=== PATIENT | female | born 1955 | race African-American/Black ===

== ENCOUNTER 2024-10-04 10:40 | Outpatient (CLI) | payer MEDICARE ==
[2024-10-04 11:32] LABS: Hematocrit 36.3 % (34.9-44.5); Hemoglobin 12.5 g/dL (12.0-15.5); Mean Corpuscular Hemoglobin 26.8 pg (27.0-33.0); Mean Corpuscular Volume 77.9 fL (81.6-98.3); Platelet Count 199 10x3/uL (150-450); Red Blood Cell (RBC) Count 4.66 10x6/uL (3.90-5.03); White Blood Cell (WBC) Count 7.93 10x3/uL (3.5-10.5)
[2024-10-04 12:09] LABS: INR-International Normal Ratio 1.0; PTT 25.9 sec (22.0-33.0); Prothrombin Time 11.0 sec (9.5-12.1)
[2024-10-04 12:14] LABS: Anion Gap 16 mmol/L (10-20); BUN (Urea Nitrogen) 19 mg/dL (9.8-20.1); Calc. Creatinine Clearance 0 mL/min (70-130); Calcium 8.7 mg/dL (7.8-10.44); Carbon Dioxide 25 mmol/L (23-31); Chloride 103 mmol/L (98-107); Glucose 183 mg/dL (80-115); Potassium 4.0 mmol/L (3.5-5.1); Sodium 140 mmol/L (136-145)
[2024-10-04 12:15] LABS: ALT (SGPT) 16 U/L (Less than 34); AST (SGOT) 20 U/L (11-34); Albumin 3.8 g/dL (3.1-4.5); Alkaline Phosphatase 64 U/L (40-110); Bilirubin, Direct 0.2 mg/dL (0.1-0.3); Bilirubin, Total 0.6 mg/dL (0.3-1.2)
== END 2024-10-04 10:41 | disposition home or self-care (01) ==
LOC: CSHLAB 10:40
PROVIDERS: ATTEND Otolaryngology
DX: Z01.818 Encounter for other preprocedural examination (principal); J39.2 Other diseases of pharynx; K13.79 Other lesions of oral mucosa
CPT/HCPCS: 80048; 80076; 85027; 85610; 85730; 93005; 93010

== ENCOUNTER → 2024-10-08 | Day surgery (SDC) | payer OTHER ==
[2024-10-04 11:17] VITALS: BMI 29.9
[~2024-10-08] MED LIST: AFRIN NASAL MIST 15 ML BOT ONE; Glycopyrrolate 0.2 MG/ML 5 ML SYRINGE ONE; Lidocaine 1% PF 5 ML VIAL ONE; Lidocaine 1% w/Epinephrine 1:200K 30 ML VIAL ONE; Ondansetron PF 4 MG/2 ML Vial ONE; Oxymetazoline HCl 0.05% (15 ML) ONE; PROPOFOL 20 ML ONE; Rocuronium Bromide 10 MG/ML (10ML VIAL) ONE; SUGAMMADEX SODIUM 200 MG/2 ML VIAL ONE; hydrALAZINE 20 MG/ML VIAL ONE
== END ==
LOC: CSHSDC 07:29
PROVIDERS: ATTEND Otolaryngology
PROC: 0CTNXZZ Resection of Uvula, External Approach (ICD-10-PCS; principal; 2024-10-08)
DX: D10.39 Benign neoplasm of other parts of mouth (principal); I10 Essential (primary) hypertension; E11.9 Type 2 diabetes mellitus without complications; Z85.3 Personal history of malignant neoplasm of breast; Z86.73 Personal history of transient ischemic attack (TIA), and cerebral infarction without residual deficits; Z90.710 Acquired absence of both cervix and uterus; Z91.041 Radiographic dye allergy status; Z88.5 Allergy status to narcotic agent; Z79.85 Long-term (current) use of injectable non-insulin antidiabetic drugs; Z79.899 Other long term (current) drug therapy
CPT/HCPCS: 42140; 82962; J0360; J1100; J2405; J2704; J3010; 36416; 88302; 88305; 88341; 88342